=== PATIENT | female | born 1930 | race Caucasian/White ===

== ENCOUNTER 2017-04-15 12:05 | Emergency (ER) | payer MEDICARE, BC ==
[~2017-04-15] VITALS: Ht 170.2 cm; Wt 73.0 kg
[2017-04-15 12:30] VITALS: BP 143/63; PULSE 78; RESP 18; TEMP 98.8; O2SAT 97
[2017-04-15] MEDS ORDERED: FLUT50SP EACH NARE (13:48)
[2017-04-15] MEDS ORDERED: LEVO88TA2 PO (13:48)
[2017-04-15] MEDS ORDERED: TRIA0.022 TOPICAL (13:48)
[2017-04-15] MEDS ORDERED: ASPI-516 CHEW (13:48)
[2017-04-15] MEDS ORDERED: VENTAER INH (13:48)
[2017-04-15] MEDS ORDERED: FEXO180T PO (13:48)
[2017-04-15] MEDS ORDERED: MOME0.1O20 TOPICAL (13:48)
[2017-04-15] MEDS ORDERED: PRAV20TA2 PO (13:48)
[2017-04-15] MEDS ORDERED: CALC625T9 PO (13:48)
[2017-04-15] MEDS ORDERED: FLUO20CA12 PO (13:48)
--- NOTE | 2017-04-15 14:33 | RADRPT ---
EXAM DATE/TIME: 04/15/2017 14:09 [place] COMPARISON: No previous studies available for comparison. INDICATIONS : Cough for 1 week. MEDICAL HISTORY : None. SURGICAL HISTORY : None. ENCOUNTER: Initial ACUITY: 1 week PAIN SCORE: 2/10 LOCATION: Bilateral chest FINDINGS: PA and lateral views of the chest demonstrate the lungs to be symmetrically aerated without evidence of mass, infiltrate or effusion. The cardiomediastinal contours are unremarkable. Kyphosis of the th oracic spine. CONCLUSION: 1. No acute cardiopulmonary disease. Ritesh Block MD on April 15, 2017 at 14:30 Board Certified Radiologist. This report was verified electronically.
[2017-04-15] MEDS ORDERED: AZIT250T3 PO (14:39)
--- NOTE | 2017-04-15 14:40 | PD ---
HPI Chief Complaint: Cold / Flu Symptoms Time Seen by Provider: 13:45 Travel History International Travel<30 days: No Contact w/Intl Traveler<30days: No Traveled to known affect area: No History of Present Illness HPI 86-year-old female presents emergency Department with her for evaluation of cough and congestion. Her is also a patient of mine diagnosed with probable pneumonia that is history is complicated by the fact that he has chronic lung disease. They both agree that she is sicker of the two. No fevers she states she's been having "rainbow colored" sputum. She states symptoms for the past 3-4 days, gradually worsening, context as above, associated signs symptoms as above. PFSH Past Medical History Anxiety: Yes High Cholesterol: Yes Cerebrovascular Accident: Yes ?: Not Past Surgical History Appendectomy: Yes Cholecystectomy: Yes Tonsillectomy: Yes Social History Alcohol Use: No Tobacco Use: No Substance Use: No Allergies-Medications (Allergen,Severity, Reaction): Coded Allergies: Penicillins (Verified Allergy, Mild, rash, 04/15/17) animal dander (Verified Allergy, Unknown, 04/15/17) shellfish derived (Verified Allergy, Unknown, nausea, 04/15/17) Uncoded Allergies: ANTIBIOTIC (Allergy, Unknown, 04/15/17) Reported Meds & Prescriptions Reported Meds & Active Scripts Active Azithromycin 250 Mg Tab 250 Mg PO DIRECTED Take 2 tabs (500 mg) on day 1 then 1 tab daily x 4 days. Reported Ventolin Hfa 18 GM Inh (Albuterol Sulfate) 90 Mcg/Act Aer 1 Puff INH Q4H PRN Triamcinolone Topical 0.025 % Oint 1 Applic TOPICAL BID Pravastatin 20 Mg Tab 20 Mg PO DAILY Mometasone Topical (Mometasone Furoate) 0.01 % Oint 1 Applic TOPICAL DAILY Levothyroxine (Levothyroxine Sodium) 88 Mcg Tab 88 Mcg PO DAILY Fluticasone Nasal [place] 50 Mcg/Act Naspr 50 Mcg EACH NARE BID 50 mcg/spray Fluoxetine (Fluoxetine HCl) 20 Mg Capsule 20 Mg PO DAILY Fiber Laxative (Calcium Polycarbophil) 625 Mg Tab 625 Mg PO DAILY PRN Fexofenadine (Fexofenadine HCl) 180 Mg Tab 180 Mg PO DAILY Aspirin 81 Mg Chew 81 Mg CHEW DAILY Review of Systems Except as stated in HPI: all other systems reviewed are Neg Physical Exam Narrative GENERAL: WD/WN in nad. Appears well. Exhibits no cough on the emergency department. SKIN: Focused skin assessment warm/dry. HEAD: Atraumatic. Normocephalic. EYES: Pupils equal and round. No scleral icterus. No injection or drainage. ENT: No nasal bleeding or discharge. Mucous membranes pink and moist. TMs clear, oropharynx clear moist. NECK: Trachea midline. No JVD. CARDIOVASCULAR: Regular rate and rhythm. No murmur appreciated. RESPIRATORY: No accessory muscle use. Clear to auscultation. Breath sounds equal bilaterally. GASTROINTESTINAL: Abdomen soft, non-tender, nondistended. Hepatic and splenic margins not palpable. MUSCULOSKELETAL: No obvious deformities. No clubbing. No cyanosis. No edema. NEUROLOGICAL: Awake and alert. No obvious cranial nerve deficits. Motor grossly within normal limits. Normal speech. PSYCHIATRIC: Appropriate mood and affect; insight and judgment normal. Data Data Last Documented VS Vital Signs Date Time Temp Pulse Resp B/P (MAP) Pulse Ox O2 Delivery O2 Flow Rate FiO2 04/15/17 12:30 98.8 78 18 143/63 (89) 97 Orders Orders Chest, Pa & Lat (04/15/17 ) Ed Discharge Order (04/15/17 14:40) [facility] Medical Decision Making Medical Screen Exam Complete: Yes Emergency Medical Condition: Yes Differential Diagnosis URI, flu, pneumonia. Narrative Course Appears well sitting upright in a stretcher reading a newspaper, chest x-ray negative but her may have pneumonia. For that reason we'll cover her for atypical pneumonia she is stable for discharge to follow-up with her primary care physician. Diagnosis Primary Impression: URI (upper respiratory infection) Med/Other Pt SpecificInfo: Prescription(s) given Scripts Azithromycin (Azithromycin) 250 Mg Tab 250 MG PO DIRECTED for Infection, #6 TAB 0 Refills Take 2 tabs (500 mg) on day 1 then 1 tab daily x 4 days. Prov: Sin Boudreaux MD 04/15/17 Disposition: 01 DISCHARGE HOME Condition: Stable Sin Boudreaux MD Apr 15, 2017 14:40
== END 2017-04-15 14:53 | disposition home or self-care (01) ==
LOC: PHED 12:05 → PHEFT 14:53
DX: J06.9 Acute upper respiratory infection, unspecified (principal)
CPT/HCPCS: 71020; 99283